=== PATIENT | male | born 1960 | race Two or more races ===

== ENCOUNTER 2016-12-19 20:07 | Emergency (ER) | payer SELFPAY ==
[~2016-12-19] VITALS: Ht 172.7 cm; Wt 108.9 kg
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
[2016-12-19 20:45] LABS: BASOPHILS # (AUTO) 0.1 /CMM (0.0-0.2); BASOPHILS % (AUTO) 0.7 % (0.0-2.0); EOSINOPHILS # (AUTO) 0.1 /CMM (0.0-0.7); EOSINOPHILS % (AUTO) 0.6 % (0.0-6.0); HEMATOCRIT 43 % (39-51); HEMOGLOBIN 15.4 g/dL (13.5-17.5); LYMPHOCYTES # (AUTO) 1.9 /CMM (0.8-4.8); LYMPHOCYTES % (AUTO) 14.7 % (20.0-44.0); MEAN CORPUSCULAR HEMOGLOBIN 32 PG (26.0-33.0); MEAN CORPUSCULAR HGB CONC 36 g/dl (31.0-36.0); MEAN CORPUSCULAR VOLUME 89 fL (80-96); MONOCYTES # (AUTO) 0.3 /CMM (0.1-1.30); MONOCYTES % (AUTO) 2.6 % (2.0-12.0); NEUTROPHILS # (AUTO) 10.9 /CMM (1.8-8.9); NEUTROPHILS % (AUTO) 81.4 % (43.0-81.0); PLATELET COUNT (AUTO) 240 /CMM (150-450); RDW COEFFICIENT OF VARIATION 13.2 (11.5-15.0); RED BLOOD CELL COUNT(AUTO) 4.86 MIL/uL (4.5-6.0); WHITE BLOOD COUNT (AUTO) 13.3 K/uL (4.3-11.0)
[2016-12-19] MEDS ORDERED: IV SET PRIMARY 1 EA INFUS.SET MC ONE (20:45)
[2016-12-19] MEDS ORDERED: ONDANSETRON HCL/PF 4 MG/2 ML VIAL ONE ×2 (20:45→21:30)
[2016-12-19] MEDS ORDERED: MORPHINE SULFATE INJ 4 MG/ML DISP.SYRIN ONE ×2 (20:45→21:30)
[2016-12-19] MEDS ORDERED: MORPHINE SULFATE INJ 2 MG/ML DISP.SYRIN ONE ×2 (20:45→21:30)
[2016-12-19] MEDS ORDERED: IV NS 0.9% 1,000 ML ONE (20:45)
--- NOTE | 2016-12-19 20:55 | NUR ---
PT TO XRAY VIA [facility].
[2016-12-19 21:00] LABS: INR 1.08 (0.87-1.13); PROTHROMBIN TIME 11.2 SECS (9.5-12.7)
[2016-12-19] MEDS ORDERED: ONDANSETRON HCL/PF 4 MG/2 ML VIAL IVP ONE (21:00)
[2016-12-19] MEDS ORDERED: MORPHINE SULFATE INJ 2 MG/ML DISP.SYRIN IV ONE ×2 (21:00→21:30)
[2016-12-19] MEDS ORDERED: IV NS 0.9% 1,000 ML BAG IV ONE (21:00)
[2016-12-19 21:04] LABS: CREATININE 1.2 mg/dL (0.6-1.3); POTASSIUM 4.7 mmol/L (3.5-5.1)
[2016-12-19 21:08] LABS: CALCIUM, SERUM 9.4 mg/dL (8.5-10.1)
[2016-12-19 21:30] LABS: TROPONIN I 1.895 ng/mL (0.00-0.056)
[2016-12-19] MEDS ORDERED: ONDANSETRON HCL/PF - ER 4 MG/2 ML VIAL IV ONE (21:30)
--- NOTE | 2016-12-19 21:37 | NUR ---
CALLED NURSING SUP. FOR TELE BED
[2016-12-19] MEDS ORDERED: ASPIRIN 325 MG TABLET ONE (21:51)
[2016-12-19] MEDS ORDERED: ASPIRIN 325 MG TABLET PO ONE (22:00)
--- NOTE | 2016-12-19 22:04 | NUR ---
PT RESTING IN GURNEY. PT STATES RELIEF WITH PAIN MEDICATION. PT VITAL SIGNS STABLE WILL CONT TO MONITOR PT.
--- NOTE | 2016-12-19 22:17 | NUR ---
[facility] P[facility]ED, DR.VU MERINO TOOL HARDENER
[2016-12-19] MEDS ORDERED: IV NS 0.9% 1,000 ML IV PRN (22:24)
[2016-12-19] MEDS ORDERED: ACETAMINOPHEN 325 MG TABLET PO PRN (22:30)
[2016-12-19] MEDS ORDERED: MAG HYDROX/AL HYDROX/SIMETH 30 ML UDC PO PRN (22:30)
[2016-12-19] MEDS ORDERED: ZOLPIDEM TARTRATE 5 MG TABLET PO PRN (22:30)
[2016-12-19] MEDS ORDERED: ONDANSETRON HCL/PF 4 MG/2 ML VIAL IVP PRN (22:30)
[2016-12-19] MEDS ORDERED: HYDROCODONE/APAP 5/325MG 1 EACH TABLET PO PRN (22:30)
[2016-12-19] MEDS ORDERED: Z GUARD REMEDY 2 OZ OINT TP PRN (22:30)
[2016-12-19] MEDS ORDERED: MORPHINE SULFATE INJ 2 MG/ML DISP.SYRIN IV PRN (22:30)
[2016-12-19] MEDS ORDERED: MAGNESIUM HYDROXIDE 30 ML UDC PO PRN (22:30)
--- NOTE | 2016-12-19 22:36 | NUR ---
REPORT GIVEN TO RUFINO ESCALONA FOR CONTINUATION OF CARE.
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
--- NOTE | 2016-12-19 23:02 | NUR ---
FAXED FACESHEET AND PT RESULTS TO ALETHE[facility] AT [phone]
[2016-12-19 23:08] VITALS: BP 123/85
--- NOTE | 2016-12-19 23:17 | NUR ---
CALL FROM [facility]. PT ACCEPTED BY DR SKAGGS. # FOR REPORT [phone]
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
--- NOTE | 2016-12-19 23:19 | NUR ---
REPORT GIVEN TO CURT ESCALONA- [facility] FOR CONTINUATION OF CARE
--- NOTE | 2016-12-19 23:50 | NUR ---
[facility] AT BEDSIDE FOR TRANSPORT TO [facility].
[2016-12-20] MEDS ORDERED: PANTOPRAZOLE 40 MG TABLET.DR PO SCH (07:30)
== END 2016-12-20 00:06 | disposition short-term general hospital (02) ==
LOC: ER 20:09 → UNDOADMIN 22:33 → TELE 22:33 → ER 12-20 00:06
DX: S06.2X0A Diffuse traumatic brain injury without loss of consciousness, initial encounter (principal); S22.43XA Multiple fractures of ribs, bilateral, initial encounter for closed fracture; S32.10XA Unspecified fracture of sacrum, initial encounter for closed fracture; S27.0XXA Traumatic pneumothorax, initial encounter; R79.9 Abnormal finding of blood chemistry, unspecified; F32.9 Major depressive disorder, single episode, unspecified; V89.2XXA Person injured in unspecified motor-vehicle accident, traffic, initial encounter; Y93.89 Activity, other specified; Y92.89 Other specified places as the place of occurrence of the external cause; Y99.9 Unspecified external cause status
CPT/HCPCS: 36415; 70450-TC; 71010-TC; 71250-TC; 72125-TC; 72170-TC; 72192-TC; 74150-TC; 80048-TC; 84484-TC; 85025-TC; 85730-TC; 87081-TC; A4606; J2270; J2405; J7030; Z7610